=== PATIENT | male | born 1945 | race Hispanic/Latino ===

== ENCOUNTER 2017-02-12 22:11 | Observation (INO) | payer OTHER ==
[2017-02-12 22:19] VITALS: PULSE 53; RESP 16; TEMP 98.2; O2SAT 97
--- NOTE | 2017-02-12 23:28 | ED PDOC ---
HPI: Psych/Substance Abuse Chief Complaint (Provider): Alcohol Ingestion History Per: Patient History/Exam Limitations: no limitations Onset/Duration Of Symptoms: Mins (prior to arrival) Current Symptoms Are (Timing): Still Present Additional Complaint(s): Damaso Cruz is a 71 year old male with previous medical history of alcohol abuse, who presents to the emergency department via EMS for an evaluation after he was found intoxicated in the bushes in front of his home prior to arrival. States that he drinks alcohol heavily every other day. Denies any medical complaints. PMD: none provided <Lucille Arguello Y - Last Filed: 02/13/17 19:22> <Krista Georges - Last Filed: 02/13/17 23:07> Time Seen by Provider: 02/12/17 22:15 Chief Complaint (Nursing): Alcohol Ingestion Past Medical History Reviewed: Historical Data, Nursing Documentation, Vital Signs Vital Signs: Last Vital Signs Temp 98.2 F 02/12/17 22:16 Pulse 53 L 02/12/17 22:16 Resp 16 02/12/17 22:16 BP 84/48 L 02/12/17 22:16 Pulse Ox 97 02/12/17 22:16 - Surgical History Surgical History: No Surg Hx - Family History Family History: States: Unknown Family Hx - Social History Current smoker - smoking cessation education provided: Yes Alcohol: > 2 Drinks/Day Drugs: Denies <Lucille Arguello Y - Last Filed: 02/13/17 19:22> Vital Signs: Last Vital Signs Temp 98.2 F 02/12/17 22:16 Pulse 53 L 02/12/17 22:16 Resp 16 02/12/17 22:16 BP 84/48 L 02/12/17 22:16 Pulse Ox 97 02/12/17 23:58 <Krista Georges - Last Filed: 02/13/17 23:07> - Allergies Allergies/Adverse Reactions: Allergies Allergy/AdvReac Type Severity Reaction Status Date / Time No Known Allergies Allergy Verified 02/12/17 22:16 Review of Systems ROS Statement: Except As Marked, All Systems Reviewed And Found Negative Constitutional: Positive for: Other (alcohol intoxication) <Lucille Arguello Y - Last Filed: 02/13/17 19:22> Physical Exam - Reviewed Nursing Documentation Reviewed: Yes Vital Signs Reviewed: Yes - Physical Exam Appears: Positive for: Well, Non-toxic, No Acute Distress Head Exam: Positive for: ATRAUMATIC, NORMAL INSPECTION, NORMOCEPHALIC Skin: Positive for: Normal Color (abrasion on left side of face), Warm, Dry Neck: Positive for: Normal, Painless ROM, Supple Cardiovascular/Chest: Positive for: Regular Rate, Rhythm Respiratory: Positive for: Normal Breath Sounds. Negative for: Respiratory Distress Gastrointestinal/Abdominal: Positive for: Normal Exam, Bowel Sounds, Soft. Negative for: Tenderness, Mass Back: Negative for: L CVA Tenderness, R CVA Tenderness Extremity: Positive for: Normal ROM Neurologic/Psych: Positive for: Alert (x3), Oriented <Lucille Arguello Y - Last Filed: 02/13/17 19:22> - Laboratory Results Result Diagrams: 02/12/17 23:14 02/12/17 23:14 - ECG O2 Sat by Pulse Oximetry: 97 (RA) Pulse Ox Interpretation: Normal <Lucille Arguello Y - Last Filed: 02/13/17 19:22> - Laboratory Results Result Diagrams: 02/12/17 23:14 02/12/17 23:14 <Krista Georges J - Last Filed: 02/13/17 23:07> Medical Decision Making Medical Decision Making: Initial Impression: ETOH abuse Initial Plan: * CT head without contrast * Labs * Alcohol serum * Glucose, blood, POC * Admit to hospital Time: 03:07 --Patient is alert, awake, oriented, and clinically sober --CT head is negative --Renal insufficiency noted, patient advised to follow up in outpatient facility. Scribe Attestation: Documented by Pita New, acting as a scribe for Lucille Arguello MD. Provider Scribe Attestation: All medical record entries made by the Scribe were at my direction and personally dictated by me. I have reviewed the chart and agree that the record accurately reflects my personal performance of the history, physical exam, medical decision making, and the department course for this patient. I have also personally directed, reviewed, and agree with the discharge instructions and disposition. <Lucille Arguello Y - Last Filed: 02/13/17 19:22> Medical Decision Making: Time: 23:33 CT head without contrast FINDINGS: Brain: No acute intracranial hemorrhage. Age-appropriate periventricular white matter disease. No edema. Multiple lacunar infarcts are identified. Ventricles: Age-appropriate ventriculomegaly. Bones: No acute displaced fracture. Sinuses: Unremarkable as visualized. No acute sinusitis. Mastoid air cells: Unremarkable as visualized. No mastoid effusion. IMPRESSION: No acute intracranial hemorrhage, or suspicious mass effect. <Krista Georges J - Last Filed: 02/13/17 23:07> ED OBSERVATION Date of observation admission: 02/12/17 Time of observation admission: 22:23 - Observation admission statement Patient is being placed in observation because:: alcohol abuse - Goals of Observation Goals of observation are:: clincal sobriety <SaundraLucille Y - Last Filed: 02/13/17 19:22> Disposition - Patient ED Disposition Is Patient to be Admitted: No Doctor Will See Patient In The: Office Counseled Patient/Family Regarding: Studies Performed, Diagnosis, Need For Followup - Disposition Disposition: Routine/Home Disposition Time: 03:07 <Lucille Arguello Y - Last Filed: 02/13/17 19:22> <Krista Georges J - Last Filed: 02/13/17 23:07> - Clinical Impression Clinical Impression: Alcohol abuse, Renal insufficiency - Disposition Condition: IMPROVED Addendum Addendum: I was not involved in the care of this patient. --Harpreet Georges MD <Krista Georges - Last Filed: 02/13/17 23:07>
--- NOTE | 2017-02-12 23:33 | CT ---
EXAM: CT Head Without Intravenous Contrast CLINICAL HISTORY: 71 years old, male; Injury or trauma; Fall; Initial encounter; Concussion / head injury; Consciousness not specified; Injury details: Patient found; Additional info: Fall. ETOH TECHNIQUE: Axial computed tomography images of the head/brain without intravenous contrast. This CT exam was performed using one or more of the following dose reduction techniques: automated exposure control, adjustment of the mA and/or kV according to patient size, and/or use of iterative reconstruction technique. Coronal and sagittal reformatted images were created and reviewed. COMPARISON: No relevant prior studies available. FINDINGS: Brain: No acute intracranial hemorrhage. Age-appropriate periventricular white matter disease. No edema. Multiple lacunar infarcts are identified. Ventricles: Age-appropriate ventriculomegaly. Bones: No acute displaced fracture. Sinuses: Unremarkable as visualized. No acute sinusitis. Mastoid air cells: Unremarkable as visualized. No mastoid effusion. IMPRESSION: No acute intracranial hemorrhage, or suspicious mass effect.
[2017-02-13 00:16] LABS: BASO # 0.1 K/uL (0.0-0.2); EOS # 0.3 K/uL (0.0-0.7); EOS % 3.9 % (0.0-4.0); HEMOGLOBIN 13.8 g/dL (12.0-18.0); LYMPH # 3.4 K/uL (1.0-4.3); LYMPH % 40.6 % (20.0-40.0); MEAN CELL VOLUME 101.4 fl (80.0-94.0); MEAN CORPUSCULAR HEMOGLOBIN 34.4 pg (27.0-31.0); MEAN CORPUSCULAR HGB CONC 33.9 g/dL (33.0-37.0); MEAN PLATELET VOLUME 8.6 fl (7.2-11.7); MONO # 0.7 K/uL (0.0-0.8); NEUT # 3.9 K/uL (1.8-7.0); NEUT % 46.5 % (50.0-75.0); NRBC % 0.1 % (0.0-0.0); RBC 4.01 Mil/uL (4.40-5.90); RED CELL DISTRIBUTION WIDTH 13.7 % (11.5-14.5); WHITE BLOOD COUNT 8.4 K/uL (4.8-10.8)
[2017-02-13 00:20] LABS: ALB/GLOB RATIO 1.3 (1.0-2.1); ALBUMIN 3.9 g/dL (3.5-5.0); CALCIUM 8.6 mg/dL (8.4-10.2)
[2017-02-13 03:33] VITALS: BP 105/56
== END 2017-02-13 03:10 | disposition home or self-care (01) ==
LOC: H.ER 22:11 → H.EROBSV 22:23
PROVIDERS: ADMIT Emergency Medicine; ATTEND Emergency Medicine
DX: F10.129 Alcohol abuse with intoxication, unspecified (principal); Y90.8 Blood alcohol level of 240 mg/100 ml or more; F17.200 Nicotine dependence, unspecified, uncomplicated; N28.9 Disorder of kidney and ureter, unspecified

== ENCOUNTER 2017-10-23 14:11 | Observation (INO) | payer OTHER ==
[2017-10-23] MEDS ORDERED: Albuterol-Ipratrop 3 mg / 0.5 (3 ml) UD INH STA (14:54)
[2017-10-23] MEDS ORDERED: Sodium Chloride 0.9% 1,000 ML IV STA (14:55)
--- NOTE | 2017-10-23 14:56 | ED PDOC ---
HPI: SOB/CHF/COPD Time Seen by Provider: 10/23/17 14:43 Chief Complaint (Nursing): Shortness Of Breath Chief Complaint (Provider): SOB History Per: Patient, Family () Additional Complaint(s): 72-year-old male with a history of CHF and hypertension presents to emergency department with shortness of breath that started this morning. Patient returned last night from [place] and was on a 9 hour flight. He states he has been coughing all night and woke up with the inability to take a deep breath. Patient states he had low-grade temperature at home this morning of 100.7. He denies any nausea or vomiting, no associated abdominal pain. Patient denies pain or swelling to lower extremities. PMD: [facility] in [place] Past Medical History Reviewed: Historical Data Vital Signs: Last Vital Signs Temp 98.4 F 10/23/17 19:04 Pulse 81 10/23/17 19:04 Resp 18 10/23/17 19:04 BP 112/68 10/23/17 19:04 Pulse Ox 97 10/23/17 19:04 - Medical History PMH: CHF, HTN - Surgical History Other surgeries: Surgical repair of subdural hematoma - Family History Family History: States: No Known Family Hx - Living Arrangements Living Arrangements: With Family - Social History Current smoker - smoking cessation education provided: Yes (smokes 1 cigarette per day) Alcohol: Social Drugs: Denies - Home Medications Home Medications: Ambulatory Orders Medication Instructions Recorded Carvedilol [Coreg] 25 mg PO BID 10/23/17 Fluoxetine HCl [Prozac] 1 tab PO QPM 10/23/17 Fluoxetine HCl [Prozac] 2 tab PO QAM 10/23/17 Furosemide [Lasix] 2 tab PO QAM 10/23/17 Furosemide [Lasix] 40 mg PO QPM 10/23/17 Valsartan [Diovan] 2 tab PO DAILY 10/23/17 amLODIPine [Norvasc] 10 mg PO DAILY 10/23/17 - Allergies Allergies/Adverse Reactions: Allergies Allergy/AdvReac Type Severity Reaction Status Date / Time No Known Allergies Allergy Verified 10/23/17 14:23 Curb-65 Severity Score - CURB-65 Severity Score Confusion: No Respiratory Rate greater than/equal to 30: No Systolic BP <90 or Diastolic BP less than/equal 60mmHg: No Age >64: Yes Curb-65 Score: 1 Percentage 30-day mortality: 2.7% Wells Criteria for PE - Wells Criteria for Pulmonary Embolism Clinical Signs and Symptoms of DVT: No P.E is #1 Diagnosis, or Equally Likely: Yes Heart Rate >100: No Immobilization at least 3 days;Surgery previous 4 weeks: No Previous, objectively diagnosed PE or DVT: No Hemoptysis: No Malignancy w/treatment within 6 months, or palliative: No Total Score: 1 Review of Systems ROS Statement: Except As Marked, All Systems Reviewed And Found Negative Constitutional: Positive for: Fever Cardiovascular: Negative for: Chest Pain, Edema, Light Headedness Respiratory: Positive for: Cough, Shortness of Breath Gastrointestinal: Negative for: Vomiting, Abdominal Pain Physical Exam - Reviewed Nursing Documentation Reviewed: Yes Vital Signs Reviewed: Yes - Physical Exam Appears: Positive for: Well, Non-toxic, No Acute Distress Skin: Positive for: Normal Color. Negative for: Rash Eye Exam: Positive for: EOMI, Normal appearance, PERRL Cardiovascular/Chest: Positive for: Regular Rate, Rhythm Respiratory: Positive for: Decreased Breath Sounds, Accessory Muscle Use, Respiratory Distress (mild) Gastrointestinal/Abdominal: Positive for: Soft. Negative for: Tenderness Back: Negative for: L CVA Tenderness, R CVA Tenderness Extremity: Positive for: Normal ROM. Negative for: Pedal Edema, Calf Tenderness Neurologic/Psych: Positive for: Alert, Oriented - Laboratory Results Result Diagrams: 10/23/17 15:10 10/23/17 15:10 - ECG Interpretation Of ECG: NSR 76 bpm, no acute finding, reviewed by PA and ED attending O2 Sat by Pulse Oximetry: 92 - Other Rad CXR X-Ray: Interpreted by Me, Viewed By Me X-Ray Interpretation: no acute finding CT chest X-Ray: Read By Radiologist X-Ray Interpretation: see below Nebulizer Treatments/Peak Flow - Duonebs Number of Bronchodilator Doses given?: 1 (duoneb) - Steroid Treatment Steroid: Not Clinically Indicated - Clinical Response Clinical Response: Unchanged (states he only feels better when on O2 via nasal cannula) Medical Decision Making Medical Decision Makin72 year old male with SOB Plan: CBC CMP Trop BNP CXR EKG Duoneb x 1 Application Packager O2 via nasal cannula at [address] angio chest IVF Flu swab CT: FINDINGS: Pulmonary arteries: The main pulmonary artery is normal in size with slight prominence of the right and left pulmonary arteries which may indicate pulmonary hypertension No pulmonary embolism. Aorta: Atheromatous changes of a normal caliber aorta and branch vessels. No thoracic aortic aneurysm. Lungs: Centrilobular emphysema. Result small airway trapping 4 mm nodule in the right upper lobe and 4 mm pleural-based parenchymal opacity along the right minor fissure in the right middle lobe. Pleural space: Unremarkable. No significant effusion. No pneumothorax. Heart: Cardiomegaly with coronary and faint valvular calcifications No significant pericardial effusion. No evidence of RV dysfunction. Mediastinum: Small hiatal hernia. Slight prominence of the lower esophageal wallClinical correlation. Thyroid: Thyroid atrophy Bones/joints : Osteopenia. Degenerative changes and spondylosis. Old healed rib fractures. No dislocation. Soft tissues: Unremarkable. Lymph nodes: Nonspecific hilar and mediastinal lymph nodes Liver: Prominent liver and spleen. Kidneys and ureters: There is a simple cyst in the left kidney. Other findings : Sequelae of old granulomatous disease without reactivation IMPRESSION: No PE or acute aortic findings. Centrilobular emphysema Small lung nodules In low-risk patients (minimal or absent history of smoking or other known risk factors), no follow-up is necessary. For high-risk patients (history of smoking or other known risk factors), an optional chest CT at 12 months could be performed. PMD is in [facility], case was d/w hospitalist, Dr. Hutchins for admission. Patient given 40 mg IV lasix. Case was d/w Dr. Gómez for cardiology consult. He states to order echo for AM and administer 40 mg IV lasix BID, Dr. Hutchins aware of these orders. Patient is aware of and agrees with admission. Disposition - Clinical Impression Clinical Impression: CHF exacerbation, Dyspnea - Patient ED Disposition Is Patient to be Admitted: Yes - Disposition Disposition Time: 19:22 Condition: FAIR - Pt Status Changed To: Hospital Disposition Of: Observation - POA Present On Arrival: None Results - Lab Results Lab Results: 10/23/17 10/23/17 10/23/17 15:10 15:10 15:10 WBC 9.2 RBC 3.97 L Hgb 13.4 Hct 39.5 MCV 99.6 H MCH 33.9 H MCHC 34.0 RDW 13.3 Plt Count 176 MPV 8.5 Neut % (Auto) 87.5 H Lymph % (Auto) 4.6 L [place] % (Auto) 6.8 Eos % (Auto) 0.2 Baso % (Auto) 0.9 Neut # (Auto) 8.1 H Lymph # (Auto) 0.4 L [place] # (Auto) 0.6 Eos # (Auto) 0.0 Baso # (Auto) 0.1 Neutrophils % (Manual) 87 H Lymphocytes % (Manual) 6 L Monocytes % (Manual) 7 Platelet Estimate Normal Large Platelets Present Hypochromasia (manual) Slight Anisocytosis (manual) Slight Macrocytosis (manual) Slight Ovalocytes Slight Sodium 144 Potassium 3.7 Chloride 100 Carbon Dioxide 29 Anion Gap 19 BUN 16 Creatinine 1.4 Est GFR ( Amer) > 60 Est GFR (Non-Af Amer) 50 Random Glucose 155 H Calcium 8.8 Total Bilirubin 0.8 AST 20 ALT 29 Alkaline Phosphatase 57 Troponin I 0.0200 NT-Pro-B Natriuret Pep 3310 H Total Protein 7.2 Albumin 3.8 Globulin 3.3 Albumin/Globulin Ratio 1.2 Influenza Typ A,B (EIA) Negative for flu a/b
[2017-10-23 15:18] LABS: BASO # 0.1 K/uL (0.0-0.2); BASO % 0.9 % (0.0-2.0); EOS % 0.2 % (0.0-4.0); HEMOGLOBIN 13.4 g/dL (12.0-18.0); LYMPH # 0.4 K/uL (1.0-4.3); LYMPH % 4.6 % (20.0-40.0); MEAN CELL VOLUME 99.6 fl (80.0-94.0); MEAN CORPUSCULAR HEMOGLOBIN 33.9 pg (27.0-31.0); MEAN PLATELET VOLUME 8.5 fl (7.2-11.7); MONO # 0.6 K/uL (0.0-0.8); MONO % 6.8 % (0.0-10.0); NEUT # 8.1 K/uL (1.8-7.0); NEUT % 87.5 % (50.0-75.0); PLATELET COUNT 176 K/uL (130-400); RBC 3.97 Mil/uL (4.40-5.90); RED CELL DISTRIBUTION WIDTH 13.3 % (11.5-14.5); WHITE BLOOD COUNT 9.2 K/uL (4.8-10.8)
[2017-10-23] MEDS ORDERED: Albuterol-Ipratrop 3 mg / 0.5 (3 ml) UD ONE ×2 (15:19→20:08)
[2017-10-23 15:27] LABS: ALB/GLOB RATIO 1.2 (1.0-2.1); ALBUMIN 3.8 g/dL (3.5-5.0); ALT/SGPT 29 U/L (21-72); AST/SGOT 20 U/L (17-59); BLOOD UREA NITROGEN 16 mg/dl (9-20); CALCIUM 8.8 mg/dL (8.4-10.2); GFR AFRICAN-AMERICAN > 60; GFR NON-AFRICAN AMERICAN 50
[2017-10-23 15:39] LABS: B-TYPE NATRIURETIC PEPTIDE 3310 pg/ml (0-900)
[2017-10-23 15:53] LABS: LYMPHOCYTE 6 % (20-50); MONOCYTE 7 % (0-10); NEUTROPHIL 87 % (42-75); PLATELET ESTIMATE NORMAL (NORMAL); TOTAL CELLS COUNTED 100
[2017-10-23 15:54] LABS: ANISOCYTOSIS SLIGHT; OVALOCYTES SLIGHT
[2017-10-23 15:55] LABS: HYPOCHROMIC SLIGHT; LARGE PLATELETS PRESENT
[2017-10-23] MEDS ORDERED: Sodium Chloride 0.9% 100 ML ONE (16:03)
[2017-10-23] MEDS ORDERED: Iodixanol 320 MG/ML 100 ML BOTTLE IV ONE (16:03)
[2017-10-23 18:21] LABS: ABG ALLEN TEST YES; ARTERIAL BLOOD GAS HCO3 31.4 mmol/L (21-28); ARTERIAL BLOOD GAS HEMOGLOBIN 13.1 g/dL (11.7-17.4); ARTERIAL BLOOD GAS O2 CAPACITY 17.5 mL/dL (16-24); ARTERIAL BLOOD GAS O2 CONTENT 17.1 ML/dL (15-23); ARTERIAL BLOOD GAS O2 SAT 97.6 % (95-98); ARTERIAL BLOOD GAS PCO2 38 mm/Hg (35-45); ARTERIAL BLOOD GAS PH 7.53 (7.35-7.45); ARTERIAL BLOOD GAS PO2 64 mm/Hg (80-100)
[2017-10-23] MEDS ORDERED: methylPREDNISolone 40 MG in Sodium Chloride 0.9% 50 ML IVPB SCH (18:45)
--- NOTE | 2017-10-23 18:56 | CP.PCM.HP ---
History of Present Illness - History of Present Illness History of Present Illness: CC: SOB This is a 72 yo male with a past medical history of essential hypertension, congestive heart failure, emphysema, alcohol abuse in the past, subdural hematoma, who presents to the ED today with the complaint of shortness of breath and "a feeling like there was a lump in my throat" along with general malaise. He is also complaining of fever of 100.7 at home. He was recently in [place] on a 9 hour flight back yesterday. In the ED, the patient was found to be saturating in the high 80's on RA and was placed on oxygen by nasal cannula. ABG showed respiratory alkalosis with hypoxemia (pO2 68). The patient had CXR and CT angiogram of the chest which revealed bilateral vascular congestion consistent with CHF exacerbation (CT negative for pulmonary embolism). The patient feels better after Duoneb treatment in the ED. The patient is to be admitted for CHF exacerbation and concomitant emphysema exacerbation (wheezing and rales heard on physical examination). Present on Admission - Present on Admission Any Indicators Present on Admission: No Review of Systems - Review of Systems Review of Systems: A 12 point review of systems was conducted and found to be negative other than what was mentioned in the HPI. Past Patient History - Infectious Disease Hx of Infectious Diseases: None - Past Social History Alcohol: Social Drugs: Denies - CARDIAC Hx Congestive Heart Failure: Yes Hx Hypertension: Yes - NEUROLOGICAL HX Cerebrovascular Accident: Yes (2 years ago) Other/Comment: subdural hematoma - PSYCHIATRIC Hx Substance Use: No - SURGICAL HISTORY Hx Surgeries: Yes Meds Allergies/Adverse Reactions: Allergies Allergy/AdvReac Type Severity Reaction Status Date / Time No Known Allergies Allergy Verified 10/23/17 14:23 Physical Exam - Additional Findings Additional findings: Physical exam: Constitutional- cooperative, awake, alert Head- NCAT, PERRL Eye- PERRL, EOMI ENT- normal exam, MMM. Neck- normal inspection, supple, no JVD Respiratory- + Diffuse wheezes, bibasilar rales, no rhinchi Cardiovascular- RRR, +S1, +S2, no m/r/g GI/Abdominal- normal bowel sounds, soft, no mass, no hsm Skin- warm, dry Extremities Exam- normal capillary refill, normal inspection, no leg edema Neurological Exam- alert, awake, oriented Psych- normal mood, normal affect Results - Vital Signs Recent Vital Signs: Last Vital Signs Temp 98.0 F 10/23/17 14:23 Pulse 84 10/23/17 14:23 Resp 18 10/23/17 14:30 BP 142/70 10/23/17 18:21 Pulse Ox 92 L 10/23/17 18:51 - Labs Result Diagrams: 10/23/17 15:10 10/23/17 15:10 Labs: Laboratory Results - last 24 hr 10/23/17 10/23/17 10/23/17 15:10 15:10 15:10 WBC 9.2 RBC 3.97 L Hgb 13.4 Hct 39.5 MCV 99.6 H MCH 33.9 H MCHC 34.0 RDW 13.3 Plt Count 176 MPV 8.5 Neut % (Auto) 87.5 H Lymph % (Auto) 4.6 L [place] % (Auto) 6.8 Eos % (Auto) 0.2 Baso % (Auto) 0.9 Neut # (Auto) 8.1 H Lymph # (Auto) 0.4 L [place] # (Auto) 0.6 Eos # (Auto) 0.0 Baso # (Auto) 0.1 Neutrophils % (Manual) 87 H Lymphocytes % (Manual) 6 L Monocytes % (Manual) 7 Platelet Estimate Normal Large Platelets Present Hypochromasia (manual) Slight Anisocytosis (manual) Slight Macrocytosis (manual) Slight Ovalocytes Slight pCO2 pO2 HCO3 ABG pH ABG Total CO2 ABG O2 Saturation ABG O2 Content ABG Base Excess ABG Hemoglobin ABG Carboxyhemoglobin POC ABG HHb (Measured) ABG Methemoglobin ABG O2 Capacity Yannick Test A-a O2 Difference Hgb O2 Saturation FiO2 Sodium 144 Potassium 3.7 Chloride 100 Carbon Dioxide 29 Anion Gap 19 BUN 16 Creatinine 1.4 Est GFR ( Amer) > 60 Est GFR (Non-Af Amer) 50 Random Glucose 155 H Calcium 8.8 Total Bilirubin 0.8 AST 20 ALT 29 Alkaline Phosphatase 57 Troponin I 0.0200 NT-Pro-B Natriuret Pep 3310 H Total Protein 7.2 Albumin 3.8 Globulin 3.3 Albumin/Globulin Ratio 1.2 Influenza Typ A,B (EIA) Negative for flu a/b 10/23/17 18:16 WBC RBC Hgb Hct MCV MCH MCHC RDW Plt Count MPV Neut % (Auto) Lymph % (Auto) [place] % (Auto) Eos % (Auto) Baso % (Auto) Neut # (Auto) Lymph # (Auto) [place] # (Auto) Eos # (Auto) Baso # (Auto) Neutrophils % (Manual) Lymphocytes % (Manual) Monocytes % (Manual) Platelet Estimate Large Platelets Hypochromasia (manual) Anisocytosis (manual) Macrocytosis (manual) Ovalocytes pCO2 38 pO2 64 L HCO3 31.4 H ABG pH 7.53 H ABG Total CO2 33.0 H ABG O2 Saturation 97.6 ABG O2 Content 17.1 ABG Base Excess 8.5 H ABG Hemoglobin 13.1 ABG Carboxyhemoglobin 2.8 H POC ABG HHb (Measured) 2.3 ABG Methemoglobin 2.3 ABG O2 Capacity 17.5 Yannick Test Yes A-a O2 Difference 88.0 Hgb O2 Saturation 92.6 L FiO2 28.0 Sodium Potassium Chloride Carbon Dioxide Anion Gap BUN Creatinine Est GFR ( Amer) Est GFR (Non-Af Amer) Random Glucose Calcium Total Bilirubin AST ALT Alkaline Phosphatase Troponin I NT-Pro-B Natriuret Pep Total Protein Albumin Globulin Albumin/Globulin Ratio Influenza Typ A,B (EIA) - EKG Data EKG Interpreted by: Myself EKG shows normal: Sinus rhythm, [place], Intervals, QRS complexes, ST-T waves Rate: Normal Assessment & Plan - Assessment and Plan (Free Text) Plan: ASSESSMENT/PLAN This is a 72 yo male with a past medical history of essential hypertension, congestive heart failure, emphysema, alcohol abuse in the past, who is being admitted for acute CHF exacerbation and concomitant COPD exacerbation. 1) Acute CHF exacerbation (CHF unspecified, need echo) - Tele/observation - Cardiology consultation, Dr. Gómez called by ED- will obtain echocardiogram and Lasix 40 mg IVP q 12 hours to be initialized - Daily EKG - troponin WNL, pt denies cp - d/c IV fluids - I&O - Continue oxygen by nasal cannula to maintain O2 sat > 90% - Lipid panel, TSH, HGA1C - Kdur 10 meq to replete potassium while on Lasix q 12 h 2) Acute COPD/emphysema exacerbation - Wheezing heard on physical exam - Duonebs q6h around the clock - Start Solu-medrol 40 mg IVPB q 8 hours 3) Essential hypertension - Continue Coreg 25 mg po q 12 hours - Norvasc 10 mg po daily 4) ETOH abuse in the past - denies recent ETOH - Monitor for withdrawal signs 5) Fever at home 100.7 - No evidence of infection here - No WBC - Monitor vitals - Repeat CBC, although WBC may increase with steroids 6) Depression - Continue SSRI 7) DVT prophylaxis - SCDs (holding off on anticoagulation due to history of subdural hematoma
[2017-10-23] MEDS: MethylPREDNISolone 40 mg Vial IVP SCH (19:21)
[2017-10-23] MEDS: Albuterol-Ipratrop 3 mg / 0.5 (3 ml) UD INH SCH (20:11)
[2017-10-24] MEDS: MethylPREDNISolone 40 mg Vial IVP SCH ×3 (03:04→21:05)
[2017-10-24 05:41] LABS: HEMOGLOBIN 12.7 g/dL (12.0-18.0); MEAN CORPUSCULAR HEMOGLOBIN 33.9 pg (27.0-31.0); RBC 3.76 Mil/uL (4.40-5.90); RED CELL DISTRIBUTION WIDTH 13.5 % (11.5-14.5); WHITE BLOOD COUNT 6.4 K/uL (4.8-10.8)
[2017-10-24 05:56] LABS: CALCIUM 8.5 mg/dL (8.4-10.2)
[2017-10-24] MEDS ORDERED: Potassium Chloride 20 mEq ER Tab PO ONE (08:00)
[2017-10-24] MEDS: Albuterol-Ipratrop 3 mg / 0.5 (3 ml) UD INH SCH ×4 (08:48→19:13)
[2017-10-24] MEDS ORDERED: FLUOXETINE HCL PO SCH ×2 (09:00→18:00)
--- NOTE | 2017-10-24 09:01 | CARD ---
APPROVED REPORT EKG Measurement Heart [id number] <Conclusion> Normal sinus rhythm Normal ECG
[2017-10-24] MEDS: Potassium Chloride 10 mEq ER Tab PO SCH (09:06)
--- NOTE | 2017-10-24 10:00 | RAD ---
HISTORY: SOB COMPARISON: Comparison made with CTA chest dated 10/23/2017 FINDINGS: LUNGS: Calcified small granuloma right upper lung field PLEURA: No significant pleural effusion identified, no pneumothorax apparent. CARDIOVASCULAR: Normal. OSSEOUS STRUCTURES: No significant abnormalities. VISUALIZED UPPER ABDOMEN: Normal. OTHER FINDINGS: None. IMPRESSION: Calcified granuloma right upper lobe. No acute consolidation.
--- NOTE | 2017-10-24 10:20 | CP.PCM.CON ---
History of Present Illness - History of Present Illness History of Present Illness: PT PRESENTS WITH BLACKBURN FOR SEVERAL DAYS. ADDITIONALLY COUGH, LOW GRADE FEVER AND ACHES. DENIES CP, ORTHOPNEA, MATIAS, PND, PALP. PT HAS A HX OF CHF EXAC IN 2004. STABLE ON HOME MEDS SINCE. ER CTA REVEALED NO PE PT WAS RECENTLY TRAVELING. Past Patient History - Infectious Disease Hx of Infectious Diseases: None - Past Social History Smoking Status: Light Smoker < 10 Cigarettes Daily - CARDIAC Hx Congestive Heart Failure: Yes Hx Hypertension: Yes - NEUROLOGICAL HX Cerebrovascular Accident: Yes (2 years ago) Other/Comment: subdural hematoma - MUSCULOSKELETAL/RHEUMATOLOGICAL Hx Falls: Yes (fell OOB 3 years ago, resulted in subdural hematoma) - PSYCHIATRIC Hx Substance Use: No - SURGICAL HISTORY Hx Surgeries: Yes - ANESTHESIA Hx Anesthesia: Yes Hx Anesthesia Reactions: No Meds Allergies/Adverse Reactions: Allergies Allergy/AdvReac Type Severity Reaction Status Date / Time No Known Allergies Allergy Verified 10/23/17 14:23 - Medications Medications: Current Medications Acetaminophen (Tylenol 325mg Tab) 650 mg PO Q6 PRN PRN Reason: Pain, Mild (1-3) Albuterol/Ipratropium (Duoneb 3 Mg/0.5 Mg (3 Ml) Ud) 3 ml INH RQID [facility] Last Admin: 10/24/17 08:48 Dose: 3 ml Amlodipine Besylate (Norvasc) 10 mg PO DAILY [facility] Last Admin: 10/24/17 09:07 Dose: 10 mg Carvedilol (Coreg) 25 mg PO Q12H [facility] Last Admin: 10/24/17 06:28 Dose: 25 mg Fluoxetine HCl (Prozac) 40 mg PO QAM [facility] Last Admin: 10/24/17 09:07 Dose: 40 mg Fluoxetine HCl (Prozac) 20 mg PO QPM [facility] Folic Acid (Folic Acid) 1 mg PO DAILY [facility] Furosemide (Lasix) 40 mg IVP Q12H [facility] Last Admin: 10/24/17 09:06 Dose: 40 mg Methylprednisolone (Solu-Medrol) 40 mg IVP Q12 [facility] Last Admin: 10/24/17 09:08 Dose: 40 mg Potassium Chloride (Klor-Con 10) 10 meq PO DAILY [facility] Last Admin: 10/24/17 09:06 Dose: 10 meq Thiamine HCl (Vitamin B1 Tab) 100 mg PO DAILY [facility] Valsartan (Diovan) 160 mg PO DAILY [facility] Physical Exam - Constitutional Appears: Well - Head Exam Head Exam: ATRAUMATIC, NORMAL INSPECTION, NORMOCEPHALIC - Eye Exam Eye Exam: EOMI, Normal appearance, PERRL. absent: Conjunctival injection, Nystagmus, Periorbital swelling, Periorbital tenderness, Scleral icterus Pupil Exam: NORMAL ACCOMODATION, PERRL. absent: Fixed, Irregular, Miosis, Mydriatic, Unequal - ENT Exam ENT Exam: Mucous Membranes Moist, Normal Exam. absent: Mucous Membranes Dry, Normal External Ear Exam, Normal Oropharynx, TM's Normal Bilaterally - Neck Exam Neck exam: Positive for: Normal Inspection. Negative for: Full Rom, Lymphadenopathy, Meningismus, Tenderness, Thyromegaly - Respiratory Exam Respiratory Exam: Decreased Breath Sounds. absent: Accessory Muscle Use, Chest Wall Tenderness, Clear to Auscultation Bilateral, Prolonged Expiratory Phase, Rales, Rhonchi, Wheezes, Respiratory Distress, Stridor, NORMAL BREATHING PATTERN Additional comments: IMPROVED O2 SAT WITH LAYING FLAT. NO JVD - Cardiovascular Exam Cardiovascular Exam: REGULAR RHYTHM, +S1, +S2, Systolic Murmur. absent: Bradycardia, Tachycardia, Clicks, Diastolic murmur, Gallop, Irregular Rhythm, JVD, RRR, Rubs, +S4 - GI/Abdominal Exam GI & Abdominal Exam: Normal Bowel Sounds, Soft. absent: Bruit, Diminished Bowel Sounds, Distended, Firm, Guarding, Hernia, Hyperactive Bowel Sounds, Hypoactive Bowel Sounds, Mass, Organomegaly, Pulsatile Mass, Rebound, Rigid, Tenderness - Rectal Exam Rectal Exam: Deferred - Extremities Exam Extremities exam: Positive for: normal inspection. Negative for: calf tenderness, full ROM, joint swelling, normal capillary refill, pedal edema, tenderness, pedal pulses present - Back Exam Back exam: NORMAL INSPECTION. absent: CVA tenderness (L), CVA tenderness (R), FULL ROM, muscle spasm, paraspinal tenderness, rash noted, tenderness, vertebral tenderness - Neurological Exam Neurological exam: Alert, CN II-XII Intact, Normal Gait, Oriented x3, Reflexes Normal - Psychiatric Exam Psychiatric exam: Normal Affect, Normal Mood - Skin Skin Exam: Dry, Intact, Normal Color, Warm Results - Vital Signs Recent Vital Signs: Last Vital Signs Temp 98.8 F 10/24/17 08:00 Pulse 60 10/24/17 09:07 Resp 27 H 10/24/17 08:00 BP 118/55 L 10/24/17 09:07 Pulse Ox 92 L 10/24/17 08:00 - Labs Result Diagrams: 10/24/17 04:35 10/24/17 04:35 Labs: Laboratory Results - last 24 hr 10/23/17 10/23/17 10/23/17 15:10 15:10 15:10 WBC 9.2 RBC 3.97 L Hgb 13.4 Hct 39.5 MCV 99.6 H MCH 33.9 H MCHC 34.0 RDW 13.3 Plt Count 176 MPV 8.5 Neut % (Auto) 87.5 H Lymph % (Auto) 4.6 L Finney % (Auto) 6.8 Eos % (Auto) 0.2 Baso % (Auto) 0.9 Neut # (Auto) 8.1 H Lymph # (Auto) 0.4 L Finney # (Auto) 0.6 Eos # (Auto) 0.0 Baso # (Auto) 0.1 Neutrophils % (Manual) 87 H Lymphocytes % (Manual) 6 L Monocytes % (Manual) 7 Platelet Estimate Normal Large Platelets Present Hypochromasia (manual) Slight Anisocytosis (manual) Slight Macrocytosis (manual) Slight Ovalocytes Slight pCO2 pO2 HCO3 ABG pH ABG Total CO2 ABG O2 Saturation ABG O2 Content ABG Base Excess ABG Hemoglobin ABG Carboxyhemoglobin POC ABG HHb (Measured) ABG Methemoglobin ABG O2 Capacity Yannick Test A-a O2 Difference Hgb O2 Saturation FiO2 Sodium 144 Potassium 3.7 Chloride 100 Carbon Dioxide 29 Anion Gap 19 BUN 16 Creatinine 1.4 Est GFR ( Amer) > 60 Est GFR (Non-Af Amer) 50 Random Glucose 155 H Calcium 8.8 Total Bilirubin 0.8 AST 20 ALT 29 Alkaline Phosphatase 57 Troponin I 0.0200 NT-Pro-B Natriuret Pep 3310 H Total Protein 7.2 Albumin 3.8 Globulin 3.3 Albumin/Globulin Ratio 1.2 Triglycerides Cholesterol LDL Cholesterol Direct HDL Cholesterol TSH 3rd Generation Influenza Typ A,B (EIA) Negative for flu a/b 10/23/17 10/24/17 10/24/17 18:16 04:35 04:35 WBC 6.4 RBC 3.76 L Hgb 12.7 Hct 37.5 MCV 100.0 H MCH 33.9 H MCHC 34.0 RDW 13.5 Plt Count 166 MPV Neut % (Auto) Lymph % (Auto) Finney % (Auto) Eos % (Auto) Baso % (Auto) Neut # (Auto) Lymph # (Auto) Finney # (Auto) Eos # (Auto) Baso # (Auto) Neutrophils % (Manual) Lymphocytes % (Manual) Monocytes % (Manual) Platelet Estimate Large Platelets Hypochromasia (manual) Anisocytosis (manual) Macrocytosis (manual) Ovalocytes pCO2 38 pO2 64 L HCO3 31.4 H ABG pH 7.53 H ABG Total CO2 33.0 H ABG O2 Saturation 97.6 ABG O2 Content 17.1 ABG Base Excess 8.5 H ABG Hemoglobin 13.1 ABG Carboxyhemoglobin 2.8 H POC ABG HHb (Measured) 2.3 ABG Methemoglobin 2.3 ABG O2 Capacity 17.5 Yaninck Test Yes A-a O2 Difference 88.0 Hgb O2 Saturation 92.6 L FiO2 28.0 Sodium 140 Potassium 3.2 L Chloride 97 L Carbon Dioxide 30 Anion Gap 16 BUN 18 Creatinine 1.5 Est GFR ( Amer) 56 Est GFR (Non-Af Amer) 46 Random Glucose 135 H Calcium 8.5 Total Bilirubin AST ALT Alkaline Phosphatase Troponin I NT-Pro-B Natriuret Pep Total Protein Albumin Globulin Albumin/Globulin Ratio Triglycerides 77 Cholesterol 142 LDL Cholesterol Direct 75 HDL Cholesterol 39 TSH 3rd Generation 0.43 L Influenza Typ A,B (EIA) Assessment & Plan (1) COPD (chronic obstructive pulmonary disease) Status: Acute (2) Former tobacco use Status: Acute (3) Dyspnea Status: Acute (4) Alcohol abuse Status: Acute (5) Renal insufficiency Status: Acute - Assessment and Plan (Free Text) Plan: THIS DOES NOT SEEM TO BE CHF EXAC. PT IMPROVES IN SUPINE POSITION. HIS BREATH SOUNDS ARE DIFFUSELY DIMINISHED. NO CRACKLES OR EDEMA NOTED. HR 55. NO HX OF NV. CONT CURRENT CARD MEDS. ' CONSIDER PULM EVAL AWAIT ECHO
--- NOTE | 2017-10-24 10:58 | CT ---
CTA chest PE protocol Indication: Shortness of breath, dyspnea on exertion Technique: Contiguous axial images were obtained through the chest with intravenous contrast enhancement. Sagittal and coronal reconstructions were generated and reviewed. This CT exam was performed using 1 or more of the following dose reduction techniques: Automated exposure control, adjustment of the MAA and/or kV according to patient size, and/or use of iterative reconstruction technique. IV Contrast: 90 mL Visipaque 320 Radiation dose (DLP): 487.89 MGy-cm. Comparison: Chest x-ray performed 10/23/17 Findings: Visualized portions of the inferior thyroid gland appear unremarkable. The mediastinal and hilar vascular structures appear within normal limits. Cardiomegaly. Coronary artery and valvular calcifications. Atherosclerotic calcifications of the aorta. Sub cm mediastinal and hilar lymph nodes, nonspecific. No large central or segmental pulmonary embolus evident. Centrilobular emphysema. Small airways. 4 mm right upper lobe and 4 mm right pleural based opacity noted along the right major fissure lower right middle lobe. No focal consolidation. No pleural effusion. No pneumothorax. Small hiatal hernia/distal esophageal wall thickening. Limited visualized portions of the upper abdomen: 1.5 cm exophytic posterior left renal hypodense lesion measures approximately 7 HU consistent with a cyst. Borderline hepatomegaly/splenomegaly. Chronic appearing rib fracture deformities. Osseous demineralization. Multilevel degenerative changes. Impression: No large central or segmental pulmonary embolus identified. Centrilobular emphysema. Two 4 mm pulmonary nodules identified as above. In the absence of risk factors for lung cancer, no specific imaging follow-up is required. If the patient is a smoker or has other risk factors, follow-up CT at 12 months is recommended to document stability. Additional findings as above. Preliminary impression was provided by virtual radiologic.
--- NOTE | 2017-10-24 13:57 | CP.PCM.PN ---
Subjective - Date & Time of Evaluation Date of Evaluation: 10/24/17 Time of Evaluation: 09:30 - Subjective Subjective: No fever still with SOB + dry cough Denies sorethroat no dysphagia no CP denies abd pain Objective - Vital Signs/Intake and Output Vital Signs (last 24 hours): Temp Pulse Resp BP Pulse Ox 98.2 F 55 L 20 137/62 90 L 10/24/17 12:00 10/24/17 12:00 10/24/17 12:00 10/24/17 12:00 10/24/17 12:00 Intake and Output: 10/24/17 10/24/17 06:59 18:59 Intake Total 240 Output Total 200 Balance 40 - Medications Medications: Current Medications Acetaminophen (Tylenol 325mg Tab) 650 mg PO Q6 PRN PRN Reason: Pain, Mild (1-3) Albuterol/Ipratropium (Duoneb 3 Mg/0.5 Mg (3 Ml) Ud) 3 ml INH RQID [facility] Last Admin: 10/24/17 11:15 Dose: 3 ml Amlodipine Besylate (Norvasc) 10 mg PO DAILY [facility] Last Admin: 10/24/17 09:07 Dose: 10 mg Carvedilol (Coreg) 25 mg PO Q12H [facility] Last Admin: 10/24/17 06:28 Dose: 25 mg Fluoxetine HCl (Prozac) 40 mg PO QAM [facility] Last Admin: 10/24/17 09:07 Dose: 40 mg Fluoxetine HCl (Prozac) 20 mg PO QPM [facility] Folic Acid (Folic Acid) 1 mg PO DAILY [facility] Last Admin: 10/24/17 13:17 Dose: 1 mg Furosemide (Lasix) 40 mg IVP Q12H [facility] Last Admin: 10/24/17 09:06 Dose: 40 mg Methylprednisolone (Solu-Medrol) 40 mg IVP Q12 [facility] Last Admin: 10/24/17 09:08 Dose: 40 mg Potassium Chloride (Klor-Con 10) 10 meq PO DAILY [facility] Last Admin: 10/24/17 09:06 Dose: 10 meq Thiamine HCl (Vitamin B1 Tab) 100 mg PO DAILY [facility] Last Admin: 10/24/17 13:18 Dose: 100 mg Valsartan (Diovan) 160 mg PO DAILY [facility] Last Admin: 10/24/17 13:17 Dose: 160 mg - Labs Labs: 10/24/17 04:35 10/24/17 04:35 - Constitutional Appears: Non-toxic, No Acute Distress - Head Exam Head Exam: NORMAL INSPECTION, NORMOCEPHALIC - Eye Exam Eye Exam: EOMI, Normal appearance Pupil Exam: NORMAL ACCOMODATION - ENT Exam ENT Exam: Mucous Membranes Moist, Normal External Ear Exam - Neck Exam Neck Exam: Full ROM. absent: Meningismus - Respiratory Exam Respiratory Exam: Decreased Breath Sounds, Rhonchi, Wheezes. absent: Respiratory Distress - Cardiovascular Exam Cardiovascular Exam: REGULAR RHYTHM, +S1, +S2 - GI/Abdominal Exam GI & Abdominal Exam: Soft. absent: Tenderness - Extremities Exam Extremities Exam: Full ROM, Normal Capillary Refill. absent: Calf Tenderness, Pedal Edema - Back Exam Back Exam: Full ROM. absent: CVA tenderness (L), CVA tenderness (R) - Neurological Exam Neurological Exam: Alert, Awake, CN II-XII Intact, Oriented x3 Neuro motor strength exam: Left Upper Extremity: 5, Right Upper Extremity: 5, Left Lower Extremity: 5, Right Lower Extremity: 5 - Psychiatric Exam Psychiatric exam: Normal Affect, Normal Mood - Skin Skin Exam: Dry, Normal Color, Warm Assessment and Plan - Assessment and Plan (Free Text) Assessment: This is a 72 yo male with a past medical history of Essential Hypertension, Congestive heart failure, Emphysema, brought in because SOB CT of chest : No large central or segmental pulmonary embolus identified. Centrilobular emphysema. Two 4 mm pulmonary nodules identified as above. In the absence of risk factors for lung cancer, no specific imaging follow-up is required. If the patient is a smoker or has other risk factors, follow-up CT at 12 months is recommended to document stability. 1) Acute CHF exacerbation (CHF unspecified, need echo) - Cardiology consultation, Dr. Gómez -Echocardiogram -cont Lasix 40 mg IVP q 12 hours - troponin WNL, pt denies CP - I&O - Continue oxygen by nasal cannula to maintain O2 sat > 90% - replete K 2) Acute COPD/emphysema exacerbation - Wheezing heard on physical exam - Duonebs q6h around the clock - decrease Solu-medrol 40 mg IVPB q 12 hours 3) Acute Bronchitis Fever at home 100.7, + cough CT of chest did not show any infiltrate cont IV Ceftriaxone and Azithro for now rpt CXR 4) Essential hypertension - Continue Coreg 25 mg po q 12 hours, Norvasc 10 mg po daily and Lasix 5) Depression - Continue SSRI 6. Lung Nodule ff up CT scan in 12 mos DVT prophylaxis - SCDs (holding off on anticoagulation due to history of subdural hematoma)
[2017-10-24] MEDS: Azithromycin 500 MG in Sodium Chloride 0.9% 250 ML IVPB SCH (16:22)
--- NOTE | 2017-10-24 17:51 | CARD ---
APPROVED REPORT EXAM: Two-dimensional and M-mode echocardiogram with Doppler and color Doppler. Other Information Quality : GoodRhythm : INDICATION LV Function:SystolicDiastolic 2D DIMENSIONS IVSd1.23 (0.7-1.1cm)LVDd4.80 (3.9-5.9cm) LVOT Diameter2.33 (1.8-2.4cm)PWd0.73 (0.7-1.1cm) IVSs1.25 (0.8-1.2cm)LVDs3.39 (2.5-4.0cm) FS (%) 29.4 %PWs1.39 (0.8-1.2cm) M-Mode DIMENSIONS Left Atrium (MM)4.76 (2.5-4.0cm)IVSd1.03 (0.7-1.1cm) Aortic Root3.31 (2.2-3.7cm)LVDd6.22 (4.0-5.6cm) Aortic Cusp Exc.2.15 (1.5-2.0cm)PWd1.09 (0.7-1.1cm) IVSs1.99 cmFS (%) 55 % LVDs2.78 (2.0-3.8cm)PWs1.62 cm Mitral Valve MV E Gctlirsx73.9cm/sMV DECEL [id number] A Dhkpjspz13.1cm/s MV [id number]/A ratio1.5MVA (PHT)3.24cm2 TDI Lateral E' Peak V12.06cm/sMedial E' Peak V10.19cm/sE/Lateral E'6.5 E/Medial E'7.7 Tricuspid Valve TR Peak Pcpjhzeb048ot/sRAP [id number] Peak Gr.26mmHg [id number] LEFT VENTRICLE The left ventricle is normal size. There is normal left ventricular wall thickness. The left ventricular function is normal. The left ventricular ejection fraction is within the normal range. The Ejection Fraction is 65-70%. There is normal LV segmental wall motion. The left ventricular diastolic function is normal. RIGHT VENTRICLE The right ventricle is normal size. The right ventricular systolic function is normal. ATRIA The left atrium size is normal. The right atrium size is normal. AORTIC VALVE The aortic valve is normal in structure. No aortic regurgitation is present. There is no aortic valvular stenosis. MITRAL VALVE The mitral valve is normal in structure. There is no mitral valve stenosis. Mitral regurgitation is mild. TRICUSPID VALVE The tricuspid valve is normal in structure. There is no tricuspid valve regurgitation noted. There is no tricuspid valve stenosis. PULMONIC VALVE The pulmonary valve is normal in structure. There is no pulmonic valvular regurgitation. GREAT VESSELS The aortic root is normal in size. The IVC is normal in size and collapses >50% with inspiration. PERICARDIAL EFFUSION The pericardium appears normal. <Conclusion> The left ventricle is normal size. The left ventricular function is normal. The left ventricular ejection fraction is within the normal range. The Ejection Fraction is 65-70%. Mitral regurgitation is mild.
[2017-10-25 05:03] VITALS: TEMP 98.4
[2017-10-25 06:00] LABS: T4 4.52 ug/dl (5.5-11.0)
[2017-10-25 06:18] LABS: CALCIUM 8.4 mg/dL (8.4-10.2)
[2017-10-25] MEDS ORDERED: Potassium Chloride 20 mEq/15 ml LIQ UD PO ONE (07:44)
[2017-10-25 08:20] VITALS: RESP 20; O2SAT 96
[2017-10-25] MEDS: Albuterol-Ipratrop 3 mg / 0.5 (3 ml) UD INH SCH ×2 (08:37→11:49)
[2017-10-25 09:11] VITALS: BP 136/62
[2017-10-25] MEDS: Potassium Chloride 10 mEq ER Tab PO SCH (09:12)
[2017-10-25] MEDS: MethylPREDNISolone 40 mg Vial IVP SCH (09:17)
[2017-10-25 09:18] VITALS: PULSE 60
[2017-10-25] MEDS: Azithromycin 500 MG in Sodium Chloride 0.9% 250 ML IVPB SCH (09:18)
[2017-10-25 11:12] LABS: ABG ALLEN TEST YES; ARTERIAL BLOOD GAS HCO3 26.4 mmol/L (21-28); ARTERIAL BLOOD GAS O2 CONTENT 18.3 ML/dL (15-23); ARTERIAL BLOOD GAS O2 SAT 96.1 % (95-98); ARTERIAL BLOOD GAS PCO2 40 mm/Hg (35-45); ARTERIAL BLOOD GAS PH 7.43 (7.35-7.45); ARTERIAL BLOOD GAS PO2 67 mm/Hg (80-100); ARTERIAL BLOOD GAS TCO2 27.7 mmol/L (22-28)
--- NOTE | 2017-10-25 13:50 | CP.PCM.CON ---
History of Present Illness - History of Present Illness History of Present Illness: Hx of COPD CHF. Pos hx of tobacco use. FH: NC PE: elderly male in NAD on Nasal oxygen. Head: Neg Adeno Pos Jorden Heart Reg Rate and Rhythm Lungs: Distant BS Abdo Soft, hypoactive BS. Ext: No C,C,E Neruo: A and O * 3 Labs see below. a/p: Aucte Resp Insuff. COPD Ex Acute Tracheobronchitis CHF Cont Nasal O2 for O2 Sat > 90%. Avoid Hyperoxia. Monitor ABG/s. Cont Abx and monitor Temp curve and pancultures. Cont BD via Nebs and steroids with a taper. Maintain neg balance and optimize cardiac status. PT when not exp BLACKBURN. PUD and DVT Px. Past Patient History - Infectious Disease Hx of Infectious Diseases: None - Past Social History Smoking Status: Light Smoker < 10 Cigarettes Daily - CARDIAC Hx Congestive Heart Failure: Yes Hx Hypertension: Yes - NEUROLOGICAL HX Cerebrovascular Accident: Yes (2 years ago) Other/Comment: subdural hematoma - MUSCULOSKELETAL/RHEUMATOLOGICAL Hx Falls: Yes (fell OOB 3 years ago, resulted in subdural hematoma) - PSYCHIATRIC Hx Substance Use: No - SURGICAL HISTORY Hx Surgeries: Yes - ANESTHESIA Hx Anesthesia: Yes Hx Anesthesia Reactions: No Meds Home Medications: Home Medication List Medication Instructions Recorded Confirmed Type Albuterol HFA [Ventolin HFA 90 1 puff IH Q4 PRN #1 inhaler 10/25/17 Rx mcg/actuation (8 g)] Azithromycin [Zithromax] 500 mg PO DAILY #7 tab 10/25/17 Rx Guaifenesin [Mucinex] 600 mg PO Q12 #20 tab.er.12h 10/25/17 Rx Methylprednisolone [Medrol Dose 4 mg PO DAILY #21 mg 10/25/17 Rx Pack (21 tabs)] Allergies/Adverse Reactions: Allergies Allergy/AdvReac Type Severity Reaction Status Date / Time No Known Allergies Allergy Verified 10/23/17 14:23 - Medications Medications: Current Medications Acetaminophen (Tylenol 325mg Tab) 650 mg PO Q6 PRN PRN Reason: Pain, Mild (1-3) Albuterol/Ipratropium (Duoneb 3 Mg/0.5 Mg (3 Ml) Ud) 3 ml INH RQID [facility] Last Admin: 10/25/17 11:49 Dose: 3 ml Amlodipine Besylate (Norvasc) 10 mg PO DAILY [facility] Last Admin: 10/25/17 09:12 Dose: 10 mg Carvedilol (Coreg) 25 mg PO Q12H [facility] Last Admin: 10/25/17 06:59 Dose: Not Given Fluoxetine HCl (Prozac) 40 mg PO QAM [facility] Last Admin: 10/25/17 09:16 Dose: 40 mg Fluoxetine HCl (Prozac) 20 mg PO QPM [facility] Last Admin: 10/24/17 18:17 Dose: Not Given Folic Acid (Folic Acid) 1 mg PO DAILY [facility] Last Admin: 10/25/17 09:12 Dose: 1 mg Furosemide (Lasix) 40 mg IVP DAILY [facility] Last Admin: 10/25/17 09:12 Dose: 40 mg Ceftriaxone Sodium 1 gm/ (Dextrose) 100 mls @ 100 mls/hr IVPB DAILY [facility] PRN Reason: Protocol Last Admin: 10/25/17 09:17 Dose: 100 mls/hr Azithromycin 500 mg/ Sodium (Chloride) 250 mls @ 250 mls/hr IVPB DAILY [facility] PRN Reason: Protocol Last Admin: 10/25/17 09:18 Dose: 250 mls/hr Methylprednisolone (Solu-Medrol) 40 mg IVP Q12 [facility] Last Admin: 10/25/17 09:17 Dose: 40 mg Potassium Chloride (Klor-Con 10) 10 meq PO DAILY [facility] Last Admin: 10/25/17 09:12 Dose: 10 meq Thiamine HCl (Vitamin B1 Tab) 100 mg PO DAILY [facility] Last Admin: 10/25/17 09:17 Dose: 100 mg Valsartan (Diovan) 160 mg PO DAILY [facility] Last Admin: 10/25/17 12:26 Dose: 160 mg Results - Vital Signs Recent Vital Signs: Last Vital Signs Temp 98.4 F 10/25/17 04:00 Pulse 60 10/25/17 09:12 Resp 20 10/25/17 08:19 BP 136/62 10/25/17 09:12 Pulse Ox 96 10/25/17 08:19 - Labs Result Diagrams: 10/24/17 04:35 10/25/17 04:25 Labs: Laboratory Results - last 24 hr 10/24/17 10/25/17 10/25/17 04:35 04:25 09:02 pCO2 40 pO2 67 L HCO3 26.4 ABG pH 7.43 ABG Total CO2 27.7 ABG O2 Saturation 96.1 ABG O2 Content 18.3 ABG Base Excess 2.0 ABG Hemoglobin 14.0 ABG Carboxyhemoglobin 2.1 H POC ABG HHb (Measured) 3.8 ABG Methemoglobin 1.3 ABG O2 Capacity 19.0 Yannick Test Yes A-a O2 Difference 33.0 Hgb O2 Saturation 92.8 L FiO2 21.0 Sodium 140 Potassium 3.3 L Chloride 97 L Carbon Dioxide 31 H Anion Gap 15 BUN 25 H Creatinine 1.6 H Est GFR ( Amer) 52 Est GFR (Non-Af Amer) 43 Random Glucose 131 H Hemoglobin A1c 5.6 Calcium 8.4 NT-Pro-B Natriuret Pep 3180 H Thyroxine (T4) 4.52 L TSH 3rd Generation 0.20 L
--- NOTE | 2017-10-25 14:59 | CP.PCM.DIS ---
Provider - Provider Date of Admission: 10/23/17 18:11 Attending physician: Berlin Hutchins DO Primary care physician: Dr. Esteban Resendiz Consults: Pulmonary cardiology consult Time Spent in preparation of Discharge (in minutes): 20 Hospital Course - Lab Results Lab Results: Most Recent Lab Values WBC 6.4 K/uL (4.8-10.8) 10/24/17 04:35 RBC 3.76 Mil/uL (4.40-5.90) L 10/24/17 04:35 Hgb 12.7 g/dL (12.0-18.0) 10/24/17 04:35 Hct 37.5 % (35.0-51.0) 10/24/17 04:35 MCV 100.0 fl (80.0-94.0) H 10/24/17 04:35 MCH 33.9 pg (27.0-31.0) H 10/24/17 04:35 MCHC 34.0 g/dL (33.0-37.0) 10/24/17 04:35 RDW 13.5 % (11.5-14.5) 10/24/17 04:35 Plt Count 166 K/uL (130-400) 10/24/17 04:35 MPV 8.5 fl (7.2-11.7) 10/23/17 15:10 Neut % (Auto) 87.5 % (50.0-75.0) H 10/23/17 15:10 Lymph % (Auto) 4.6 % (20.0-40.0) L 10/23/17 15:10 Williams % (Auto) 6.8 % (0.0-10.0) 10/23/17 15:10 Eos % (Auto) 0.2 % (0.0-4.0) 10/23/17 15:10 Baso % (Auto) 0.9 % (0.0-2.0) 10/23/17 15:10 Neut # (Auto) 8.1 K/uL (1.8-7.0) H 10/23/17 15:10 Lymph # (Auto) 0.4 K/uL (1.0-4.3) L 10/23/17 15:10 Williams # (Auto) 0.6 K/uL (0.0-0.8) 10/23/17 15:10 Eos # (Auto) 0.0 K/uL (0.0-0.7) 10/23/17 15:10 Baso # (Auto) 0.1 K/uL (0.0-0.2) 10/23/17 15:10 Neutrophils % (Manual) 87 % (42-75) H 10/23/17 15:10 Lymphocytes % (Manual) 6 % (20-50) L 10/23/17 15:10 Monocytes % (Manual) 7 % (0-10) 10/23/17 15:10 Platelet Estimate Normal (NORMAL) 10/23/17 15:10 Large Platelets Present 10/23/17 15:10 Hypochromasia (manual) Slight 10/23/17 15:10 Anisocytosis (manual) Slight 10/23/17 15:10 Macrocytosis (manual) Slight 10/23/17 15:10 Ovalocytes Slight 10/23/17 15:10 pCO2 40 mm/Hg (35-45) 10/25/17 09:02 pO2 67 mm/Hg (80-100) L 10/25/17 09:02 HCO3 26.4 mmol/L (21-28) 10/25/17 09:02 ABG pH 7.43 (7.35-7.45) 10/25/17 09:02 ABG Total CO2 27.7 mmol/L (22-28) 10/25/17 09:02 ABG O2 Saturation 96.1 % (95-98) 10/25/17 09:02 ABG O2 Content 18.3 ML/dL (15-23) 10/25/17 09:02 ABG Base Excess 2.0 mmol/L (-2.0-3.0) 10/25/17 09:02 ABG Hemoglobin 14.0 g/dL (11.7-17.4) 10/25/17 09:02 ABG Carboxyhemoglobin 2.1 % (0.5-1.5) H 10/25/17 09:02 POC ABG HHb (Measured) 3.8 % (0.0-5.0) 10/25/17 09:02 ABG Methemoglobin 1.3 % (0.0-3.0) 10/25/17 09:02 ABG O2 Capacity 19.0 mL/dL (16-24) 10/25/17 09:02 Yannick Test Yes 10/25/17 09:02 A-a O2 Difference 33.0 mm/Hg 10/25/17 09:02 Hgb O2 Saturation 92.8 % (95.0-98.0) L 10/25/17 09:02 FiO2 21.0 % 10/25/17 09:02 Sodium 140 mmol/l (132-148) 10/25/17 04:25 Potassium 3.3 MMOL/L (3.6-5.0) L 10/25/17 04:25 Chloride 97 mmol/L (98-107) L 10/25/17 04:25 Carbon Dioxide 31 mmol/L (22-30) H 10/25/17 04:25 Anion Gap 15 (10-20) 10/25/17 04:25 BUN 25 mg/dl (9-20) H 10/25/17 04:25 Creatinine 1.6 mg/dl (0.8-1.5) H 10/25/17 04:25 Est GFR ( Amer) 52 10/25/17 04:25 Est GFR (Non-Af Amer) 43 10/25/17 04:25 Random Glucose 131 mg/dL (75-110) H 10/25/17 04:25 Hemoglobin A1c 5.6 % (4.2-6.5) 10/24/17 04:35 Calcium 8.4 mg/dL (8.4-10.2) 10/25/17 04:25 Total Bilirubin 0.8 mg/dl (0.2-1.3) 10/23/17 15:10 AST 20 U/L (17-59) 10/23/17 15:10 ALT 29 U/L (21-72) 10/23/17 15:10 Alkaline Phosphatase 57 U/L (38-126) 10/23/17 15:10 Troponin I 0.0200 ng/mL (0.00-0.120) 10/23/17 15:10 NT-Pro-B Natriuret Pep 3180 pg/ml (0-900) H 10/25/17 04:25 Total Protein 7.2 G/DL (6.3-8.2) 10/23/17 15:10 Albumin 3.8 g/dL (3.5-5.0) 10/23/17 15:10 Globulin 3.3 gm/dL (2.2-3.9) 10/23/17 15:10 Albumin/Globulin Ratio 1.2 (1.0-2.1) 10/23/17 15:10 Triglycerides 77 mg/DL (0-149) 10/24/17 04:35 Cholesterol 142 mg/dL (0-199) 10/24/17 04:35 LDL Cholesterol Direct 75 mg/dL (0-129) 10/24/17 04:35 HDL Cholesterol 39 MG/DL (30-70) 10/24/17 04:35 Thyroxine (T4) 4.52 ug/dl (5.5-11.0) L 10/25/17 04:25 TSH 3rd Generation 0.20 mIU/ML (0.46-4.68) L 10/25/17 04:25 Influenza Typ A,B (EIA) Negative for flu a/b (NEGATIVE) 10/23/17 15:10 - Hospital Course Hospital Course: 72 yo male with a past medical history of essential hypertension, congestive heart failure in 2015 , emphysema, alcohol abuse in the past, subdural hematoma , presented to the ED complaining of shortness of breath and "a feeling like there was a lump in my throat" along with general malaise. He is also complaining of fever of 100.7 at home. He was recently in [place] on a 9 hour flight back yesterday. In the ED, the patient was found to be saturating in the high 80's on RA and was placed on oxygen by nasal cannula. ABG showed respiratory alkalosis with hypoxemia (pO2 68). The patient had CXR and CT angiogram of the chest which revealed no PE , central emphysema, no infiltrates (CT negative for pulmonary embolism). He was given lasix IV m, Methylprednisolone IV , Duonebs, rocephin and Zithromax with improvement. Pulmonary and cardiology were consulted . As per cardiology this does not seem to be CHF exacerbation . ECho showed normal EF and wall motion. Most likely patient has COPD exacerbation with tracheobronchitis . At present feeling well, saturating 95 % in RA with respiratory distress or wheezing . PO2 on RA still low 67. Arrangements made to discharge patient on home o2 via NC , albuterol PRN, Zithromax Po , mucinex and Medrol pack. Patient counselled to follow up with PMD upon discharge All questions answered . will discharge patient home. Dx 1. Acute respiratory insufficiency with hypoxemia secondary to COPD exacerbation and acute tracheobronchitis 2. COPD exacerbation and emphysema-- d/c on home O2 3. Acute tracheobronchitis-- d/c on zithromax PO , medrol pack ,Albuterol PRN and mucinex 4.Stable CHF-- Echo shows normal EF . 5. Essential HTN - controlled 6. FEROZ -- most likely prerenal secondary to diuretics 7. Depression 8.Lung nodule 4 mm- repeat CT chest in 12 months 9. Hypokalemia- secondary to diuretic use Discharge Exam - Head Exam Head Exam: NORMAL INSPECTION, NORMOCEPHALIC - Eye Exam Eye Exam: EOMI, Normal appearance, PERRL Pupil Exam: NORMAL ACCOMODATION - ENT Exam ENT Exam: Mucous Membranes Moist, Normal Exam - Neck Exam Neck exam: Full Rom, Normal Inspection - Respiratory Exam Respiratory Exam: Clear to PA & Lateral, NORMAL BREATHING PATTERN. absent: Rales, Rhonchi, Wheezes, Respiratory Distress - Cardiovascular Exam Cardiovascular Exam: REGULAR RHYTHM, RRR, +S1, +S2. absent: JVD - GI/Abdominal Exam GI & Abdominal Exam: Normal Bowel Sounds, Soft. absent: Distended, Guarding, Rebound, Tenderness - Rectal Exam Rectal Exam: Deferred - Extremities Exam Extremities exam: normal capillary refill, normal inspection, pedal pulses present - Back Exam Back exam: NORMAL INSPECTION - Neurological Exam Neurological exam: Alert, CN II-XII Intact, Oriented x3, Reflexes Normal - Psychiatric Exam Psychiatric exam: Normal Affect, Normal Mood - Skin Skin Exam: Dry, Intact, Normal Color, Warm Discharge Plan - Discharge Medications Prescriptions: Albuterol HFA [Ventolin HFA 90 mcg/actuation (8 g)] 1 puff IH Q4 PRN #1 inhaler PRN Reason: Shortness Of Breath Azithromycin [Zithromax] 500 mg PO DAILY #7 tab Guaifenesin [Mucinex] 600 mg PO Q12 #20 tab.er.12h Methylprednisolone [Medrol Dose Pack (21 tabs)] 4 mg PO DAILY #21 mg - Follow Up Plan Condition: STABLE Disposition: HOME/ ROUTINE Patient education suggested?: Yes Additional Instructions: Follow up with PMD Esteban Resendiz
--- NOTE | 2017-10-25 15:11 | CP.PCM.PN ---
Subjective - Date & Time of Evaluation Date of Evaluation: 10/25/17 Time of Evaluation: 13:00 - Subjective Subjective: PT MUCH LESS SOB. MOVING AIR BETTER. ECHO SHOWS NML SYS AND ROBERTS FUNCTION. Objective - Vital Signs/Intake and Output Vital Signs (last 24 hours): Temp Pulse Resp BP Pulse Ox 98.4 F 60 20 136/62 96 10/25/17 04:00 10/25/17 09:12 10/25/17 08:19 10/25/17 09:12 10/25/17 08:19 Intake and Output: 10/25/17 10/25/17 06:59 18:59 Intake Total 710 Output Total 200 Balance 510 - Medications Medications: Current Medications Acetaminophen (Tylenol 325mg Tab) 650 mg PO Q6 PRN PRN Reason: Pain, Mild (1-3) Albuterol/Ipratropium (Duoneb 3 Mg/0.5 Mg (3 Ml) Ud) 3 ml INH RQID [facility] Last Admin: 10/25/17 11:49 Dose: 3 ml Amlodipine Besylate (Norvasc) 10 mg PO DAILY [facility] Last Admin: 10/25/17 09:12 Dose: 10 mg Carvedilol (Coreg) 25 mg PO Q12H [facility] Last Admin: 10/25/17 06:59 Dose: Not Given Fluoxetine HCl (Prozac) 40 mg PO QAM [facility] Last Admin: 10/25/17 09:16 Dose: 40 mg Fluoxetine HCl (Prozac) 20 mg PO QPM [facility] Last Admin: 10/24/17 18:17 Dose: Not Given Folic Acid (Folic Acid) 1 mg PO DAILY [facility] Last Admin: 10/25/17 09:12 Dose: 1 mg Furosemide (Lasix) 40 mg IVP DAILY [facility] Last Admin: 10/25/17 09:12 Dose: 40 mg Ceftriaxone Sodium 1 gm/ (Dextrose) 100 mls @ 100 mls/hr IVPB DAILY [facility] PRN Reason: Protocol Last Admin: 10/25/17 09:17 Dose: 100 mls/hr Azithromycin 500 mg/ Sodium (Chloride) 250 mls @ 250 mls/hr IVPB DAILY [facility] PRN Reason: Protocol Last Admin: 10/25/17 09:18 Dose: 250 mls/hr Methylprednisolone (Solu-Medrol) 40 mg IVP Q12 [facility] Last Admin: 10/25/17 09:17 Dose: 40 mg Potassium Chloride (Klor-Con 10) 10 meq PO DAILY [facility] Last Admin: 10/25/17 09:12 Dose: 10 meq Thiamine HCl (Vitamin B1 Tab) 100 mg PO DAILY [facility] Last Admin: 10/25/17 09:17 Dose: 100 mg Valsartan (Diovan) 160 mg PO DAILY [facility] Last Admin: 10/25/17 12:26 Dose: 160 mg - Labs Labs: 10/24/17 04:35 10/25/17 04:25 - Constitutional Appears: Well - Head Exam Head Exam: ATRAUMATIC, NORMAL INSPECTION, NORMOCEPHALIC - Eye Exam Eye Exam: EOMI, Normal appearance, PERRL. absent: Conjunctival injection, Nystagmus, Periorbital swelling, Periorbital tenderness, Scleral icterus Pupil Exam: NORMAL ACCOMODATION, PERRL - ENT Exam ENT Exam: Mucous Membranes Moist, Normal Exam. absent: Mucous Membranes Dry, Normal External Ear Exam, Normal Oropharynx, TM's Normal Bilaterally - Neck Exam Neck Exam: Full ROM, Normal Inspection. absent: Lymphadenopathy, Meningismus, Tenderness, Thyromegaly - Respiratory Exam Respiratory Exam: NORMAL BREATHING PATTERN Additional comments: DECREASED INSP SOUNDS HOWEVER IMPROVED FROM YESTERDAY - Cardiovascular Exam Cardiovascular Exam: REGULAR RHYTHM, +S1, +S2, Murmur. absent: Bradycardia, Tachycardia, Clicks, Diastolic murmur, Gallop, Irregular Rhythm, JVD, RRR, Rubs , +S4 - GI/Abdominal Exam GI & Abdominal Exam: Soft, Normal Bowel Sounds. absent: Bruit, Distended, Firm , Guarding, Rigid, Tenderness, Diminished Bowel Sounds, Hernia, Hyperactive Bowel Sounds, Hypoactive Bowel Sounds, Organomegaly, Pulsatile Mass, Rebound, Mass - Rectal Exam Rectal Exam: Deferred - Extremities Exam Extremities Exam: Full ROM, Normal Capillary Refill, Normal Inspection. absent : Calf Tenderness, Joint Swelling, Pedal Edema, Tenderness - Back Exam Back Exam: NORMAL INSPECTION. absent: CVA tenderness (L), CVA tenderness (R), Full ROM, muscle spasm, paraspinal tenderness, rash noted, tenderness, vertebral tenderness - Neurological Exam Neurological Exam: Alert, Awake, CN II-XII Intact, Normal Gait, Oriented x3. absent: Abnormal Gait, Altered, Motor Sensory Deficit, Reflexes Normal - Psychiatric Exam Psychiatric exam: Normal Affect, Normal Mood. absent: Agitated, Anxious, Depressed, Flat Affect, Homicidal Ideation, Manic, Suicidal Ideation - Skin Skin Exam: Dry, Intact, Normal Color, Warm. absent: Abrasion, Cyanosis, Diaphoretic, Erythema, Mottled, Pallor, Pallor, Petechiae, Rash, Urticaria, Vesicles Assessment and Plan (1) COPD (chronic obstructive pulmonary disease) Status: Acute (2) Former tobacco use Status: Acute (3) Dyspnea Status: Acute (4) Alcohol abuse Status: Acute (5) Renal insufficiency Status: Acute - Assessment and Plan (Free Text) Plan: PT HAS NO EVIDENCE OF CHF. MILD TO MOD MR ON ECHO. SINCE COPD EXAC IS IMPROVED, MAY D/C TO HOME. HOME O2 ORDERED.
== END 2017-10-25 15:15 | disposition home or self-care (01) ==
LOC: H.ER 14:11 → H.ERHOLD 18:11 → H.ICU/CCU 10-24 02:39
PROVIDERS: ADMIT Internal Medicine; ATTEND Internal Medicine
DX: J44.1 Chronic obstructive pulmonary disease with (acute) exacerbation (principal); J44.0 Chronic obstructive pulmonary disease with (acute) lower respiratory infection; J20.9 Acute bronchitis, unspecified; J43.2 Centrilobular emphysema; I11.0 Hypertensive heart disease with heart failure; I50.9 Heart failure, unspecified; N17.9 Acute kidney failure, unspecified; F32.9 Major depressive disorder, single episode, unspecified; E87.6 Hypokalemia; R91.8 Other nonspecific abnormal finding of lung field; F17.210 Nicotine dependence, cigarettes, uncomplicated; R09.02 Hypoxemia; R06.89 Other abnormalities of breathing; E87.3 Alkalosis
CPT/HCPCS: 71045; 71275; 80048; 80053; 80061; 82803; 83036; 83880; 84436; 84443; 84484; 85025; 85027; 87081; 87804; 93005; 93306; 94640; 96360; 96361; 96374; 99285; G0378; J0456; J0696; J1940; J2920; J7040; Q9967